=== PATIENT | male | born 1970 | race Two or more races ===

== ENCOUNTER → 2017-06-24 | Outpatient (CLI) | payer OTHER | END | disposition home or self-care (01) | LOC: RAD 15:28 | DX: J45.20 Mild intermittent asthma, uncomplicated (principal) ==

== ENCOUNTER 2017-06-25 07:17 | Outpatient (CLI) | payer OTHER | END 2017-06-25 07:31 | disposition home or self-care (01) | LOC: SONOGRAMA 07:17 → MAMO-SONO 08:15 | DX: N18.2 Chronic kidney disease, stage 2 (mild) (principal) ==

== ENCOUNTER 2017-06-25 07:19 | Outpatient (CLI) | payer OTHER | END 2017-06-25 07:29 | disposition home or self-care (01) | LOC: MRI 07:19 | DX: M50.33 Other cervical disc degeneration, cervicothoracic region (principal) | CPT/HCPCS: 72141 ==

== ENCOUNTER 2017-08-02 13:57 | Outpatient (CLI) | payer OTHER | END 2017-08-02 15:00 | disposition home or self-care (01) | LOC: TOM 13:57 | DX: M54.2 Cervicalgia (principal); M48.02 Spinal stenosis, cervical region; M50.123 Cervical disc disorder at C6-C7 level with radiculopathy; M47.22 Other spondylosis with radiculopathy, cervical region ==

== ENCOUNTER 2017-08-21 07:12 | Outpatient (CLI) | payer OTHER | END 2017-08-21 08:00 | disposition home or self-care (01) | LOC: NUCLEAR 07:12 | DX: I11.9 Hypertensive heart disease without heart failure (principal); I20.0 Unstable angina; E78.2 Mixed hyperlipidemia | CPT/HCPCS: 78452; 93017; A9500 ==

== ENCOUNTER 2020-02-17 16:44 | Outpatient (CLI) | payer OTHER | END 2020-02-17 16:52 | disposition home or self-care (01) | LOC: RAD 16:44 | DX: M25.562 Pain in left knee (principal); M17.12 Unilateral primary osteoarthritis, left knee ==

== ENCOUNTER → 2020-11-13 | Emergency (ER) | payer OTHER ==
[~2020-11-13] VITALS: Ht 182.9 cm; Wt 120.2 kg
[~2020-11-13] MED LIST: ATACAND32 MG PO; PROTONIX40 MG PO
== END | disposition home or self-care (01) ==
LOC: ER 11:13
DX: L02.215 Cutaneous abscess of perineum (principal)

== ENCOUNTER 2021-02-13 16:04 | Outpatient (CLI) | payer OTHER | END 2021-02-13 16:14 | disposition home or self-care (01) | LOC: RAD 16:04 | PROVIDERS: ATTEND Colon & Rectal Surgery | DX: I10 Essential (primary) hypertension (principal); K60.1 Chronic anal fissure; K92.1 Melena ==

== ENCOUNTER 2021-02-22 07:40 | Day surgery (SDC) | payer OTHER | END 2021-02-22 16:20 | disposition home or self-care (01) | LOC: CIR.AMB 07:40 | PROVIDERS: ATTEND Colon & Rectal Surgery | DX: K60.1 Chronic anal fissure (principal); Z20.822 Contact with and (suspected) exposure to COVID-19 ==

== ENCOUNTER 2021-06-18 17:32 | Inpatient (IN) | payer OTHER ==
[~2021-06-18] VITALS: Ht 182.9 cm; Wt 117.9 kg
[2021-06-20] MEDS ORDERED: ROSUVASTATIN CAL5 MG (10:31)
[2021-06-20] MEDS ORDERED: PANTOPRAZOLE SO40 MG (10:38)
== END 2021-06-21 18:42 | disposition home or self-care (01) | DRG 989 ==
LOC: ER 17:32 → SEC-K 06-19 09:27 → SURH 06-19 09:27
PROVIDERS: ADMIT Colon & Rectal Surgery; ATTEND Colon & Rectal Surgery
PROC: 0DBQ7ZZ Excision of Anus, Via Natural or Artificial Opening (ICD-10-PCS; principal; 2021-06-20 09:15)
DX: L02.215 Cutaneous abscess of perineum (principal); K60.5 Anorectal fistula; B96.29 Other Escherichia coli [E. coli] as the cause of diseases classified elsewhere; G47.33 Obstructive sleep apnea (adult) (pediatric); I11.9 Hypertensive heart disease without heart failure; Z20.822 Contact with and (suspected) exposure to COVID-19